=== PATIENT | female | born 1950 | race Caucasian/White ===

== ENCOUNTER 2022-04-10 11:23 | Outpatient (CLI) | payer MEDICARE, SELFPAY ==
[2022-04-10 12:14] LABS: Anion Gap 6 mmol/L (8-16); Blood Urea Nitrogen 15 mg/dL (7-18); Carbon Dioxide 29 mmol/L (21-32); Chloride 106 mmol/L (98-108); Estimated Glomerular Filt Rate > 60; Glucose 113 mg/dL (70-99); Osmolality Calculated 293 mOsm/kg (285-295); Potassium 3.9 mmol/L (3.5-5.1); Sodium 141 mmol/L (136-145)
== END 2022-04-10 11:24 | disposition home or self-care (01) ==
LOC: CHSLAB 11:45
PROVIDERS: PCP Physician Assistant; Visit Provider Family Medicine
DX: E87.5 Hyperkalemia (principal)
CPT/HCPCS: 36415; 80048

== ENCOUNTER 2022-09-02 09:28 | Outpatient (CLI) | payer MEDICARE, MEDICAID, SELFPAY ==
--- NOTE | ~2022-09-02 | XR_ITS ---
XR lumbar spine 2-3V DATE: 09/02/2022 10:08 INDICATION: Low back pain, L5-S1. TECHNIQUE: AP, lateral, coned lateral lumbosacral views COMPARISON: 04/07/2013 lumbar spine FINDINGS: There is prominent rotatory levoscoliosis of the lower thoracic and lumbar spine. Osteopenia. There is multilevel degenerative disc disease, most severe at L2-3. No fracture or bone destruction is evident. The lumbar pedicles appear intact. There is degenerative changes apophyseal joints with slight grade 1 anterolisthesis at L4-5. The sacroiliac joints are intact. Status post right total hip arthroplasty. IMPRESSION: Prominent rotatory levoscoliosis and multilevel degenerative disc disease Osteopenia Reviewed, dictated and finalized at location A. IMPRESSION: Prominent rotatory levoscoliosis and multilevel degenerative disc d isease Osteopenia
== END 2022-09-02 09:29 | disposition home or self-care (01) ==
LOC: CHSIMG 09:30
PROVIDERS: PCP Physician Assistant; Visit Provider Physician Assistant
DX: M54.50 Low back pain, unspecified (principal)
CPT/HCPCS: 72100

== ENCOUNTER 2022-09-22 13:17 | Outpatient (CLI) | payer MEDICARE, MEDICAID, SELFPAY ==
--- NOTE | ~2022-09-22 | DEXA_ITS ---
Bone Density Report Name: DAYSI mullen Age: 72 Sex: Female Ethnicity: White Date of : 1950 Indication: postmenopausal; screening for osteoporosis; prior fracture; Referring Provider: Todd, Tam Study: Bone densitometry was performed. Exam Date: September 22, 2022 Accession number: [id number] Bone Density: Region BMD T-score Z-score Classification AP Spine(L3, L4) 0.551 -5.0 -2.7 Osteoporosis Femoral Neck (Left) 0.571 -2.5 -0.6 Osteoporosis Total Hip (Left) 0.616 -2.7 -1.1 Osteoporosis World Health Organization criteria for BMD impression classify patients as: Normal (T-score at or above -1.0), Osteopenia (T-score between -1.0 and -2.5), or Osteoporosis (T-score at or below -2.5). 10-year Fracture Risk: FRAX not reported because: Some T-score for Spine Total or Hip Total or Femoral Neck at or below -2.5 Prior hip or vertebral fracture Clinical Information Provided by Patient: Have had a previous hip or vertebral fracture Has had a low trauma fracture Has used the following medications: Vitamin D Menopause Age: 49 No regular weight bearing exercise Does not regularly consume dairy products Onset of menses at age 13 Number of children 2 Impression: The patient has established osteoporosis, based on the Total Spine T-score and the existence of a prior fracture. The patient has risk factors, including: previous fracture. Discussion: HIGH RISK OF FRACTURE. BONE DENSITY IS UNDESIRABLY LOW AT ONE OR MORE SKELETAL SITES, CONSISTENT WITH POSTMENOPAUSAL OSTEOPOROSIS. This patient's lowest T-score, in a patient who has previously fractured, meets the World Health Organization's (WHO) criteria for severe osteoporosis. In untreated patients, the risk of osteoporotic fracture increases approximately two-fold for each 1.0 SD decrease in T-score. Low bone density is not the only risk factor for fracture; also consider factors such as patient's age, frailty or poor health, risk of falling, risk of injury, previous osteoporotic fracture, family history of osteoporosis, cigarette smoking, low body weight, etc. Not everyone with low bone mineral density has osteoporosis; osteomalacia and other metabolic bone disorders should also be considered. Patients who have osteoporosis should be evaluated for specific diseases and conditions (secondary causes) that may cause or contribute to bone loss. The [place] Association of Clinical Endocrinologists (AACE) and National Osteoporosis Foundation (NOF) recommend pharmacologic intervention for all postmenopausal women with a previous hip or vertebral fracture and a T-score in this range. The patient should follow a healthful lifestyle (good nutrition with adequate calcium and vitamin D, and appropriate weight-bearing exercise). Follow-Up: Consider a repeat BMD and Vertebral Fracture Assessment (VFA) exam in
== END 2022-09-22 13:18 | disposition home or self-care (01) ==
LOC: CHSIMG 13:21
PROVIDERS: PCP Physician Assistant; Visit Provider Physician Assistant
DX: Z78.0 Asymptomatic menopausal state (principal)
CPT/HCPCS: 77080

== ENCOUNTER 2023-01-21 12:18 | Outpatient (CLI) | payer MEDICARE, MEDICAID, SELFPAY ==
--- NOTE | ~2023-01-21 | MM_ITS ---
EXAMINATION: MM screening [facility] BI w jason HISTORY: Screening TECHNIQUE: Craniocaudal and mediolateral oblique 3-D tomosynthesis images were obtained and synthetic 2-D images were generated. CAD analysis was submitted and interpreted. COMPARISON: Comparison to multiple prior studies sequentially, with oldest reviewed study dated 12/2015. BREAST PARENCHYMAL COMPOSITION: There are scattered areas of fibroglandular density. FINDINGS: There is no evidence of suspicious mass, calcification, or architectural distortion to sugg est malignancy in either breast. There has been no suspicious interval change. IMPRESSION: 1. No mammographic evidence of malignancy. 2. Recommend routine screening mammography in one year. BI-RADS Category 1: Negative Reviewed, dictated and finalized at location A.
== END 2023-01-21 12:19 | disposition home or self-care (01) ==
PROVIDERS: PCP Physician Assistant; Visit Provider Physician Assistant
DX: Z12.31 Encounter for screening mammogram for malignant neoplasm of breast (principal)
CPT/HCPCS: 77063; 77067

== ENCOUNTER 2023-02-17 09:47 | Outpatient (CLI) | payer MEDICARE, MEDICAID, SELFPAY ==
--- NOTE | ~2023-02-17 | XR_ITS ---
Clinical Indication: Chest pain PA and lateral views of the chest: Comparison: None Findings: The lungs are clear, without evidence of focal consolidation or pleural effusion. Possible COPD. Cardiomediastinal silhouette is within normal limits. Right shoulder arthroplasty. Impression: Clear lungs. Possible COPD. Reviewed, dictated and finalized at location . Impression: Clear lungs. Possible COPD.
--- NOTE | 2023-02-17 09:58 | ECG_ITS ---
Measurements Intervals [place] Rate: 90 P: 111 TN: 148 QRS: 62 QRSD: 94 T: 56 QT: 347 QTc: 425 Interpretive Statements SINUS RHYTHM NONSPECIFIC T-WAVE ABNORMALITY ABNORMAL ECG BASELINE ARTIFACT LIMITS INTERPRETATION NO PREVIOUS ECG AVAILABLE FOR COMPARISON Electronically Signed On 02-18-2023 16:32:30 CDT by Sandor Matthews M.D.
== END 2023-02-17 09:48 | disposition home or self-care (01) ==
LOC: CHSIMG 09:52
PROVIDERS: PCP Family Medicine; Visit Provider Physician Assistant
DX: R07.89 Other chest pain (principal); R94.31 Abnormal electrocardiogram [ECG] [EKG]
CPT/HCPCS: 71046; 93005

== ENCOUNTER 2023-06-21 11:49 | Outpatient (CLI) | payer MEDICARE, SELFPAY ==
[2023-06-21 12:51] LABS: Anion Gap 7 mmol/L (8-16); Blood Urea Nitrogen 14 mg/dL (7-18); Calcium 9.4 mg/dL (8.5-10.1); Carbon Dioxide 29 mmol/L (21-32); Chloride 106 mmol/L (98-108); Estimated Glomerular Filt Rate > 60; Glucose 132 mg/dL (70-99); Osmolality Calculated 296 mOsm/kg (285-295); Potassium 4.5 mmol/L (3.5-5.1); Sodium 142 mmol/L (136-145)
== END 2023-06-21 11:50 | disposition home or self-care (01) ==
LOC: CHSLAB 11:54
PROVIDERS: PCP Physician Assistant; Visit Provider Physician Assistant
DX: E87.5 Hyperkalemia (principal)
CPT/HCPCS: 36415; 80048

== ENCOUNTER 2024-05-02 12:53 | Outpatient (CLI) | payer MEDICARE, SELFPAY ==
--- NOTE | ~2024-05-02 | DEXA_ITS ---
? Bone Density Report? Name:? DAYSI AVINA Patient ID:??? [id number] Age:? 73 Sex:? Female Ethnicity:? White Date of : 1950 Indication: postmenopausal; screening for osteoporosis; prior fracture; Referring Provider: JACQUELINE, PINEDA Study: Bone densitometry was performed. Exam Date: May 02, 2024 Accession number: [id number] Bone Density: Region? BMD??? T-score? Z-score?? Classification AP Spine(L1, L2, L3)? 0.769?? -2.3?0.0? Osteopenia Femoral Neck (Left)? 0.532?? -2.9? -0.9? Osteoporosis Total Hip (Left)? 0.635?? -2.5? -0.8? Osteoporosis World Health Organization criteria for BMD impression classify patients as: Normal (T-score at or above -1.0), Osteopenia (T-score between -1.0 and -2.5), or Osteoporosis (T-score at or below -2.5). 10-year Fracture Risk: FRAX not reported because: ? Some T-score for Spine Total or Hip Total or Femoral Neck at or below -2.5 ? Prior hip or vertebral fracture Clinical Information Provided by Patient: Have had a previous hip or vertebral fracture Has had a low trauma fracture Has used the following medications: Vitamin D Menopause Age: 49 No regular weight bearing exercise Does not regularly consume dairy products Onset of menses at age 13 Number of children 2 Impression: The patient has established osteoporosis, based on the Left Femoral Neck T-score and the existence of a prior fracture. The patient has risk factors, including: previous fracture. Discussion: HIGH RISK OF FRACTURE. BONE DENSITY IS UNDESIRABLY LOW AT ONE OR MORE SKELETAL SITES, CONSISTENT WITH POSTMENOPAUSAL OSTEOPOROSIS. This patient's lowest T-score, in a patient who has previously fractured,? meets the World Health Organization's (WHO) criteria for severe osteoporosis. In untreated patients, the risk of osteoporotic fracture increases approximately two-fold for each 1.0 SD decrease in T-score.? Low bone density is not the only risk factor for fracture; also consider factors such as patient's age, frailty or poor health, risk of falling, risk of injury, previous osteoporotic fracture, family history of osteoporosis, cigarette smoking, low body weight, etc.? Not everyone with low bone mineral density has osteoporosis; osteomalacia and other metabolic bone disorders should also be considered. Patients who have osteoporosis should be evaluated for specific diseases and conditions (secondary causes) that may cause or contribute to bone loss.? The [place] Association of Clinical Endocrinologists (AACE) and National Osteoporosis Foundation (NOF) recommend pharmacologic intervention for all postmenopausal women with a previous hip or vertebral fracture and a T-score in this range. The patient should follow a healthful lifestyle (goo
== END 2024-05-02 12:54 | disposition home or self-care (01) ==
PROVIDERS: PCP Physician Assistant; Visit Provider Physician Assistant
DX: Z78.0 Asymptomatic menopausal state (principal); M85.88 Other specified disorders of bone density and structure, other site; M81.0 Age-related osteoporosis without current pathological fracture
CPT/HCPCS: 77080

== ENCOUNTER 2024-05-20 11:17 | Outpatient (CLI) | payer MEDICARE, MEDICAID, SELFPAY ==
--- NOTE | ~2024-05-20 | XR_ITS ---
XR hip LT min 2V 05/20/2024 11:36 Indication: Left hip pain Procedure: 2 views left hip Comparison: 06/12/2013 Findings: Moderate osteoarthritis of the left hip. No acute fracture or traumatic malalignment. There is a partially visualized right hip arthroplasty. No significant soft tissue abnormality. Impression: 1: Moderate osteoarthritis of the left hip. Reviewed, dictated and finalized at location B. Impression: 1: Moderate osteoarthritis of the left hip.
== END 2024-05-20 11:18 | disposition home or self-care (01) ==
LOC: CHSIMG 11:20
PROVIDERS: PCP Physician Assistant; Visit Provider Physician Assistant
DX: M16.12 Unilateral primary osteoarthritis, left hip (principal); M25.552 Pain in left hip
CPT/HCPCS: 73502

== ENCOUNTER 2024-11-23 08:31 | Outpatient (CLI) | payer MEDICARE, SELFPAY ==
[2024-11-23 08:58] LABS: Basophils Absolute Auto 0.04 K/mm3 (0.00-0.10); Basophils Percent Auto 0.5 % (0.0-1.0); Eosinophils Absolute Auto 0.05 K/mm3 (0.02-0.50); Eosinophils Percent Auto 0.6 % (1.0-6.0); Hematocrit 40.7 % (35.0-42.0); Hemoglobin 12.7 g/dL (11.7-13.8); Immature Granulocyte Absolute 0.02 K/mm3 (0.00-0.00); Immature Granulocyte Percent A 0.2 % (0.0-0.0); Lymphocytes Absolute Auto 1.83 K/mm3 (1.10-4.50); Lymphocytes Percent Auto 21.9 % (18.0-42.0); Mean Corpuscular HGB Conc 31.2 g/dL (32-36); Mean Corpuscular Hemoglobin 28.9 pg (27.0-31.0); Mean Corpuscular Volume 92.5 fL (78.0-102.0); Mean Platelet Volume 10.1 fl (9.2-11.8); Monocytes Absolute Auto 0.53 K/mm3 (0.10-0.90); Monocytes Percent Auto 6.3 % (2.0-11.0); Neutrophils Absolute Auto 5.88 K/mm3 (1.70-7.20); Neutrophils Percent Auto 70.5 % (50.0-70.0); Platelet Count Result 258 K/mm3 (150-420); Red Cell Distribution Width 14.1 % (11.6-14.4); White Blood Count 8.4 K/mm3 (4.8-10.8)
[2024-11-23 10:11] LABS: Alanine Aminotransferase 22 U/L (14-59); Albumin Level 3.7 g/dL (3.4-5.0); Alkaline Phosphatase 81 U/L (46-116); Anion Gap 5 mmol/L (4-12); Aspartate Amino Transferase 16 U/L (15-37); Bilirubin,Total 0.5 mg/dL (0.00-1.00); Blood Urea Nitrogen 20 mg/dL (7-18); Calcium 9.5 mg/dL (8.5-10.1); Carbon Dioxide 33 mmol/L (21-32); Chloride 105 mmol/L (98-108); Cholesterol 227 mg/dL (0-200); Estimated Glomerular Filt Rate > 60; Glucose 91 mg/dL (70-99); HDL Direct 76 mg/dL (40-60); LDL Cholesterol Calculated 130 mg/dL (<130); Osmolality Calculated 298 mOsm/kg (285-295); Potassium 5.2 mmol/L (3.5-5.1); Sodium 143 mmol/L (136-145); Thyroid Stimulating Hormone 4.05 uIU/mL (0.36-3.74); Total Protein 6.7 g/dL (6.4-8.2); Triglycerides 106 mg/dL (0-150); Vitamin B12 417 pg/mL (193-986)
[2024-11-24 08:07] LABS: Vitamin D 25 Hydroxy 55 ng/mL (30-100)
== END 2024-11-23 08:32 | disposition home or self-care (01) ==
PROVIDERS: PCP Physician Assistant; Visit Provider Physician Assistant
DX: E53.8 Deficiency of other specified B group vitamins (principal); E55.9 Vitamin D deficiency, unspecified; I10 Essential (primary) hypertension; E78.5 Hyperlipidemia, unspecified; E03.8 Other specified hypothyroidism
CPT/HCPCS: 36415; 80053; 80061; 82306; 82607; 84443; 85025

== ENCOUNTER 2025-01-18 08:30 | Outpatient (CLI) | payer MEDICARE, SELFPAY ==
--- OUTSIDE RECORDS SUMMARY | 2025-01-18 08:38 | XMS_ITS | Clinical Summary ---
Author Organization [facility] Address [address] [place] [address] Care Team Providers Care Cinetechnician Name Role Phone Neighbors, Cornel Crenshaw MD Primary Care Provider [phone] Allergies No known active allergies Medications meclizine (ANTIVERT) 25 mg tablet Take 25 mg by mouth 3 times daily as needed for Dizziness. Active Cholecalciferol, Vitamin D3, 2,000 unit Capsule Take by mouth. Active clonazePAM (KlonoPIN) 0.5 mg Tablet Take 0.5 mg by mouth 2 times daily. Active propranolol (INDERAL) 10 mg tablet Take 10 mg by mouth 2 times daily. Active Active Problems Problem Noted Date Diagnosed Date Screening for breast cancer 02/17/2018 Abnormal mammogram of left breast 02/17/2018 Family History Medical History Relation Name Comments Heart Disease Mother Relation Name Status Comments Brother 1 Brother 2 Alive Father Mother Social History Tobacco Use Types Packs/Day Years Used Date Smoking Tobacco: Never Smokeless Tobacco: Never Alcohol Use Standard Drinks/Week Comments No 0 (1 standard drink = 0.6 oz pur e alcohol) Comments No Sex and Gender Information Value Date Recorded Sex Assigned at Not on file Legal Sex Female 1:37 PM CDT Gender Identity Not on file Sexual Orientation Not on file Last Filed Vital Signs Vital Sign Reading Time Taken Comments Blood Pressure 141/87 02/17/2018 10:18 AM CDT Pulse 80 02/17/2018 10:18 AM CDT Temperature 36.4 C (97.6 F) 02/17/2018 10:18 AM CDT Respiratory Rate - - Oxygen Saturation 93% 02/17/2018 10:18 AM CDT Inhaled Oxygen Concentration - - Weight 71.4 kg (157 lb 8 oz) 02/17/2018 10:18 AM CDT Height 162.6 cm (5' 4 ) 02/17/2018 10:18 AM CDT Body Mass Index 27.03 02/17/2018 10:18 AM CDT Plan of Treatment Health Maintenance Due Date Last Done Comments DTAP/TDAP/TD VACCINES (1 - Tdap) 1969 COLORECTAL SCREENING 1995 Colorectal Cancer Screening 1995 FIT-DNA Q 3 years 1995 FIT/FOBT Q 1 year 1995 Flex Sig/CT Colonography Q 5 years 1995 PNEUMOCOCCAL VACCINE 50+ YEA RS (1 of 1 - PCV) 2000 ZOSTER VACCINE (1 of 2) 2000 OSTEOPOROSIS SCREENING 2015 BREAST CANCER SCREENING 02/03/2019 02/04/20 18, 08/03/2016, 08/03/2016, Additional history exists INFLUENZA VACCINE (#1) 2024 RSV VACCINE (60+ or ) (1 - 1-dose 75+ series) 2025 Procedures Procedure Name Priority Date/Time Associated Diagnosis Comments MAMMOGRAM REPORT Routine 02/03/2018 from Last 3 Months or Most Recently Relevant to Health Maintenance Results * MAMMOGRAM REPORT (02/03/2018) us Abstract Provider MAMMO ORDERABLES Final Result Performing Organization Address City/State/[facility] Co de Phone Number [facility] from Last 3 Months or Most Recently Relevant to Health Maintenance Insurance MEDICARE PART A AND B [employer] MEDICARE [place]PP [place] [id number] Care Teams Cinetechnician Relationship Specialty Start Date End Date Cornel Doherty MD [address] [place] [address] PCP - General Family Practice 02/17/18
[2025-01-18 09:00] LABS: Basophils Absolute Auto 0.04 K/mm3 (0.00-0.10); Basophils Percent Auto 0.6 % (0.0-1.0); Eosinophils Absolute Auto 0.48 K/mm3 (0.02-0.50); Eosinophils Percent Auto 7.1 % (1.0-6.0); Hematocrit 41.2 % (35.0-42.0); Immature Granulocyte Absolute 0.03 K/mm3 (0.00-0.00); Immature Granulocyte Percent A 0.4 % (0.0-0.0); Lymphocytes Absolute Auto 1.72 K/mm3 (1.10-4.50); Lymphocytes Percent Auto 25.3 % (18.0-42.0); Mean Corpuscular HGB Conc 31.6 g/dL (32-36); Mean Corpuscular Hemoglobin 29.3 pg (27.0-31.0); Mean Corpuscular Volume 92.8 fL (78.0-102.0); Mean Platelet Volume 10.5 fl (9.2-11.8); Monocytes Absolute Auto 0.54 K/mm3 (0.10-0.90); Monocytes Percent Auto 7.9 % (2.0-11.0); Neutrophils Absolute Auto 3.99 K/mm3 (1.70-7.20); Neutrophils Percent Auto 58.7 % (50.0-70.0); Platelet Count Result 265 K/mm3 (150-420); Red Blood Count 4.44 M/mm3 (4.20-5.40); Red Cell Distribution Width 13.1 % (11.6-14.4); White Blood Count 6.8 K/mm3 (4.8-10.8)
[2025-01-18 09:51] LABS: Alanine Aminotransferase 13 U/L (14-59); Albumin Level 3.6 g/dL (3.4-5.0); Alkaline Phosphatase 85 U/L (46-116); Aspartate Amino Transferase 11 U/L (15-37); Bilirubin,Total 0.4 mg/dL (0.00-1.00); Blood Urea Nitrogen 20 mg/dL (7-18); Calcium 9.5 mg/dL (8.5-10.1); Carbon Dioxide 33 mmol/L (21-32); Estimated Glomerular Filt Rate > 60; Ferritin 133 ng/mL (8-252); Free T4 Free Thyroxine 0.98 ng/dL (0.76-1.46); Glucose 93 mg/dL (70-99); Iron 58 ug/dL (50-170); Percent Iron Saturation 19 % (12-57); Thyroid Stimulating Hormone 3.73 uIU/mL (0.36-3.74); Vitamin B12 443 pg/mL (193-986)
[2025-01-18 10:08] LABS: Anion Gap 6 mmol/L (4-12); Chloride 105 mmol/L (98-108); Osmolality Calculated 300 mOsm/kg (285-295); Potassium 4.1 mmol/L (3.5-5.1); Sodium 144 mmol/L (136-145)
[2025-01-20 02:39] LABS: Total Triiodothyronine (T3) 117 ng/dL (76-181)
== END 2025-01-18 08:31 | disposition home or self-care (01) ==
LOC: CHSLAB 08:31
PROVIDERS: PCP Physician Assistant; Visit Provider Physician Assistant
DX: F41.9 Anxiety disorder, unspecified (principal); E03.8 Other specified hypothyroidism; E53.8 Deficiency of other specified B group vitamins; R79.9 Abnormal finding of blood chemistry, unspecified
CPT/HCPCS: 36415; 80053; 82607; 82728; 83540; 83550; 84439; 84443; 84480; 85025

== ENCOUNTER 2025-06-29 14:48 | Outpatient (CLI) | payer MEDICARE, SELFPAY ==
--- NOTE | ~2025-06-29 | US_ITS ---
EXAMINATION: US venous doppler [facility] DATE: 06/29/2025 15:21 INDICATION: Bilateral lower limb swelling TECHNIQUE: Grayscale ultrasound images without and with compression and Doppler ultrasound images of the bilateral lower extremity veins were obtained. COMPARISON: None. FINDINGS: The visualized portions of right common femoral vein, profunda (deep) femoral vein, femoral vein, popliteal vein, posterior tibial veins, peroneal veins, gastrocnemius vein and greater saphenous vein outflow are patent. The visualized portions of left common femoral vein, profunda femoral vein, femoral vein, popliteal vein, posterior tibial veins, peroneal veins, gastrocnemius vein and greater saphenous vein outflow are patent. IMPRESSION: 1. No deep venous thrombosis in either lower limb. Reviewed, dictated and finalized at location A.
--- OUTSIDE RECORDS SUMMARY | 2025-06-29 14:53 | XMS_ITS | Clinical Summary ---
Author Organization [facility] Address [address] [place] [address] Care Team Providers Care Wire Coiler Machine Operator Name Role Phone Neighbors, Cornel Crenshaw MD Primary Care Provider [phone] Allergies No known active allergies Medications meclizine [...] 10:18 AM CDT Height 162.6 cm (5' 4) 02/17/2018 10:18 AM CDT Body Mass Index [...] 08/03/2016, Additional history exists INFLUENZA VACCINE (#1) 2025 RSV VACCINE (60+ or ) (1 - 1-dose 75+ series) 2025 Procedures Procedure Name Priority Date/Time Associated Diagnosis Comments MAMMOGRAM REPORT Routine 02/03/2018 from Last 3 Months or Most Recently Relevant to Health Maintenance Results * MAMMOGRAM REPORT (02/03/2018) us Abstract Provider MAMMO ORDERABLES Final Result Performing Organization Address City/State/[facility] Co de Phone Number [facility] from Last 3 Months or Most Recently Relevant to Health Maintenance Insurance MEDICARE PART A AND B [employer] MEDICARE [place] [id number] Care Teams Wire Coiler Machine Operator Relationship Specialty Start Date End Date Cornel Doherty MD [address] [place] [address] PCP - General Family Practice 02/17/18
== END 2025-06-29 14:49 | disposition home or self-care (01) ==
LOC: CHSIMG 14:51
PROVIDERS: PCP Physician Assistant; Visit Provider Family Medicine
DX: R60.0 Localized edema (principal)
CPT/HCPCS: 93970

== ENCOUNTER 2025-07-10 08:39 | Outpatient (CLI) | payer MEDICARE, SELFPAY ==
--- OUTSIDE RECORDS SUMMARY | 2025-07-10 09:13 | XMS_ITS | Clinical Summary ---
Author Organization [facility] Address [address] [place] [address] Care Team Providers Care Veneer Trimmer Name Role Phone Neighbors, Cornel Crenshaw MD Primary Care Provider [phone] Allergies No known active allergies Medications meclizine [...] MAMMO ORDERABLES Final Result Performing Organization Address City/State/[facility] Co de Phone Number [facility] from Last 3 Months or Most Recently Relevant to Health Maintenance Insurance MEDICARE PART A AND B [employer] MEDICARE [place] [id number] Care Teams Veneer Trimmer Relationship Specialty Start Date End Date Cornel Doherty MD [address] [place] [address] PCP - General Family Practice 02/17/18
[2025-07-10 09:15] LABS: Hematocrit 37.7 % (35.0-42.0); Hemoglobin 11.6 g/dL (11.7-13.8); Immature Granulocyte Percent A 0.2 % (0.0-0.0); Lymphocytes Absolute Auto 1.49 K/mm3 (1.10-4.50); Mean Corpuscular HGB Conc 30.8 g/dL (32-36); Mean Corpuscular Hemoglobin 28.0 pg (27.0-31.0); Mean Corpuscular Volume 91.1 fL (78.0-102.0); Nucleated Red Blood Cells Absolute Auto 0.00 K/mm3 (0.00-0.00); Nucleated Red Blood Cells Perc 0.0 % (0-0.0); Platelet Count Result 290 K/mm3 (150-420); Red Blood Count 4.14 M/mm3 (4.20-5.40); White Blood Count 5.9 K/mm3 (4.8-10.8)
[2025-07-10 09:32] LABS: Iron 72 ug/dL (37-170)
[2025-07-10 09:33] LABS: Hemoglobin A1C 5.3 % (<5.7)
[2025-07-10 09:34] LABS: Alanine Aminotransferase 11 U/L (6-35); Albumin Level 4.0 g/dL (3.5-5.1); Alkaline Phosphatase 78 U/L (38-126); Anion Gap 5 mmol/L (4-12); Aspartate Amino Transferase 23 U/L (14-36); Bilirubin,Total 0.4 mg/dL (0.2-1.3); Blood Urea Nitrogen 18 mg/dL (7-17); Calcium 10.0 mg/dL (8.4-10.2); Carbon Dioxide 31 mmol/L (22-30); Chloride 105 mmol/L (98-107); Cholesterol 193 mg/dL (0-200); Estimated Glomerular Filt Rate > 60; Glucose 97 mg/dL (65-110); HDL Direct 70 mg/dL; Magnesium 2.0 mg/dL (1.6-2.3); Osmolality Calculated 293 mOsm/kg (285-295); Potassium 4.7 mmol/L (3.4-5.0); Sodium 141 mmol/L (137-145); Total Protein 6.7 g/dL (6.3-8.2); Triglycerides 100 mg/dL (<150)
[2025-07-10 09:43] LABS: Percent Iron Saturation 19 % (20-50)
[2025-07-10 10:05] LABS: Thyroid Stimulating Hormone 3.210 uIU/mL (0.465-4.680)
[2025-07-10 10:09] LABS: Ferritin 22.60 ng/mL (11.1-264)
[2025-07-10 10:24] LABS: Vitamin B12 326.0 pg/mL (239-931)
== END 2025-07-10 08:40 | disposition home or self-care (01) ==
LOC: CHSLAB 08:42
PROVIDERS: PCP Physician Assistant; Visit Provider Physician Assistant
DX: E03.8 Other specified hypothyroidism (principal); E53.8 Deficiency of other specified B group vitamins; E78.00 Pure hypercholesterolemia, unspecified; I10 Essential (primary) hypertension; R23.1 Pallor; R73.09 Other abnormal glucose; R79.9 Abnormal finding of blood chemistry, unspecified; D64.9 Anemia, unspecified; K90.9 Intestinal malabsorption, unspecified
CPT/HCPCS: 36415; 80053; 80061; 82607; 82728; 83036; 83540; 83550; 83735; 84443; 84630; 85025